=== PATIENT | male | born 1945 | race Caucasian/White ===

== ENCOUNTER 2016-12-22 19:57 | Inpatient (IN) | payer MEDICARE, BC ==
[~2016-12-22] VITALS: Ht 175.3 cm; Wt 77.1 kg
[~2016-12-22 19:57] MED LIST: ASPI325T4 PO; METO25TA4 PO; SIMV40TA3 PO; WARF4TAB7 PO; WARF5TAB7 PO; [UNRECOGNIZED DRUG - OTHER] PO
--- NOTE | 2016-12-22 20:03 | ED.ADGEN ---
Past History Past Medical History: CVA, High Cholesterol, Hypertension, Other Past Surgical History: Other Alcohol Use: Occasionally Drug Use: None Adult General Chief Complaint Chief Complaint " I guess I woke up goofy more than my usual goofy... " " I did have some memory problems ...I noticed when the residential real estate assistant's... started asking me question...I was having some memory problems... but I am much more clear now... "..." I cant take blood thinner.. because I bleed too bad... but I do take my daily Aspirin.." HPI HPI Patient is a 71 year old male who presents with above hx and complaints of mental status change. Pt. states he worked today.. and came home as usual and ate dinner. He then took his normal nap after dinner and about 40 min. later when he woke up he was confused. Pt. is now reportedly back to baseline per pt. and family. Pt. denies trauma, travel or ill contacts. Pt. follows with Dr. Esparza and EFFIE for his cardiac surgery. Patient states he does not take anticoagulants because of severe GI bleeds. Patient does take a daily aspirin. Patient denies any prior history of strokes or neural disorders. Review of Systems Review of Systems Constitutional: Denies fever or chills [] Eyes: Denies change in visual acuity, redness, or eye pain [] HENT: Denies nasal congestion or sore throat [] Respiratory: Denies cough or shortness of breath [] Cardiovascular: No additional information not addressed in HPI [] GI: Denies abdominal pain, nausea, vomiting, bloody stools or diarrhea [] : Denies dysuria or hematuria [] Musculoskeletal: Denies back pain or joint pain [] Integument: Denies rash or skin lesions [] Neurologic: Denies headache, focal weakness or sensory changes [. Hx. and] complaints of an episode of confusion after a 40 min. nap. Endocrine: Denies polyuria or polydipsia [] Family History Family History Noncontributory Current Medications Current Medications Current Medications Medications (Trade) Dose Ordered Sig/Tenzin Start Time Stop Time Status Last Admin Dose Admin Lactated Ringer's (Iv Lactated Ringers) 1,000 ml @ 100 mls/hr Q10H 12/22/16 20:15 12/23/16 02:47 DC See nursing for home meds Allergies Allergies Allergies Coded Allergies Type Severity Reaction Last Updated Verified No Known Drug Allergies 08/15/16 No Physical Exam Physical Exam Constitutional: , no acute distress, non-toxic appearance. [] HENT: Normocephalic, atraumatic, bilateral external ears normal, oropharynx moist, no oral exudates, nose normal. [] Eyes: PERRLA, EOMI, conjunctiva normal, no discharge. [] Neck: Normal range of motion, no tenderness, supple, no stridor. No bruits appreciated. Cardiovascular: Bradycardic Heart rate regular rhythm, PMI to Lt. Lungs & Thorax: Bilateral breath sounds equal at apexes with few scattered wheezes on auscultation [] Mid line surgical scar. Abdomen: Bowel sounds normal, soft, no tenderness, no masses, no pulsatile masses. [] Patient refused rectal at this time. Skin: Warm, dry, no erythema, no rash. Poor turgor Back: No tenderness, no CVA tenderness. [] Extremities: No tenderness, no cyanosis, no clubbing, ROM intact, no edema. [] Nor cording appreciated. Neurologic: Alert and oriented X 3, normal motor function, normal sensory function, no focal deficits noted. DTR +2 patella and brachial. Electrician Office equal. Daughter at bedside states he is acting normally now. Psychologic: Affect normal, judgement normal, mood normal. [] Current Patient Data Vital Signs Vital Signs Date Time Temp Pulse Resp B/P Pulse Ox O2 Delivery O2 Flow Rate FiO2 12/22/16 20:05 98.3 75 18 97 Room Air Lab Results Laboratory Tests Test 12/22/16 20:35 White Blood Count 4.1x10^3/uL (4.0-11.0) Red Blood Count 4.71x10^6/uL (4.30-5.70) Hemoglobin 13.5g/dL (13.0-17.5) Hematocrit 41.4% (39.0-53.0) Mean Corpuscular Volume 88fL (79-100) Mean Corpuscular Hemoglobin 29pg (25-35) Mean Corpuscular Hemoglobin Concent 33g/dL (31-37) Red Cell Distribution Width 15.7% (11.5-14.5) H Platelet Count 186x10^3/uL (140-400) Neutrophils (%) (Auto) 44% (31-73) Lymphocytes (%) (Auto) 37% (24-48) Monocytes (%) (Auto) 14% (0-9) H Eosinophils (%) (Auto) 4% (0-3) H Basophils (%) (Auto) 1% (0-3) Neutrophils # (Auto) 1.8x10^3uL (1.8-7.7) Lymphocytes # (Auto) 1.5x10^3/uL (1.0-4.8) Monocytes # (Auto) 0.6x10^3/uL (0.0-1.1) Eosinophils # (Auto) 0.2x10^3/uL (0.0-0.7) Basophils # (Auto) 0.0x10^3/uL (0.0-0.2) Erythrocyte Sedimentation Rate 19 (0-15) H Prothrombin Time 9.3SEC (9.4-11.4) L Prothrombin Time INR 0.9 (0.9-1.1) PTT 24SEC (23-33) D-Dimer (Debi) 0.92mg/L (0.00-0.50) H Sodium Level 140mmol/L (136-145) Potassium Level 4.0mmol/L (3.5-5.1) Chloride Level 104mmol/L (98-107) Carbon Dioxide Level 29mmol/L (21-32) Anion Gap 7 (6-14) Blood Urea Nitrogen 19mg/dL (8-26) Creatinine 1.8mg/dL (0.7-1.3) H Estimated GFR (Cockcroft-Gault) 37.4 Glucose Level 86mg/dL (70-99) Calcium Level 8.7mg/dL (8.5-10.1) Magnesium Level 2.1mg/dL (1.8-2.4) Total Bilirubin 0.3mg/dL (0.2-1.0) Direct Bilirubin 0.1mg/dL (0.0-0.2) Aspartate Amino Transferase (AST) 25U/L (15-37) Alanine Aminotransferase (ALT) 18U/L (16-63) Alkaline Phosphatase 89U/L (46-116) Creatine Kinase 94U/L (39-308) Creatine Kinase MB (Mass) 1.2ng/mL (0.0-3.6) Creatine Kinase MB Relative Index 1.3% (0-4) Troponin I Quantitative < 0.017ng/mL (0-0.055) C-Reactive Protein 0.5mg/L (0-3.3) KH-Cjt-E-Type Natriuretic Peptide 419pg/mL (0-124) H Total Protein 7.9g/dL (6.4-8.2) Albumin 4.0g/dL (3.4-5.0) Lipase 305U/L (73-393) EKG EKG My interpretation EKG shows a sinus rhythm at 56 bpm. There is some anterior septal changes but no findings acute STEMI at this time. [] Radiology/Procedures Radiology/Procedures My interpretation chest x-ray shows midline sternal wires. No large infiltrate. Aortic valve. I interpretation of CT shows no shift, mass, edema, or bleed. Does have findings of an older lacunar infarct on Lt caudate area. No acute cervical findings. Degenerative joint changes. See formal report when available. [] Course & Med Decision Making Course & Med Decision Making Pertinent Labs and Imaging studies reviewed. (See chart for details) TPA not indicated at this time. Will not heparinize, due to past hx of severe GI bleeds. Discussed presentation, testing and tx plan with Dr. Lyn- will admit for further tx. and evaluation. Additional note: Pt. was in process of starting a carotid doppler and developed Tonic /Clonic Seizure.- Rapid response was called. No documented loss of pulse. On my arrival patient was postictal and attempting to get out of bed and fighting the nurses. Patient seemed to respond to his name, but would not follow instructions. At times patient appeared to have additional seizure activity staring to the left. After another episode on possible seizure activity, patient lost gag reflex and was snoring. Elected to protect patient' s airway while awaiting transfer for possible MRI at [facility]. Patient intubated with a 7.5 to 23 cm at gum with curve blade. Breath sounds equal, with fog of tube. Sats > 98%. No breath sounds over stomach. Pt. received Ativan and 1000 mg Keppra IV See Rapid response flow sheet for details. OG place by auscultation with return of gastric fluids. Chest x-ray post placement ET tube shows adequate placement of OG tube. ET at just above jesus. See rapid response. Critical care 60 min. [] Final Impression Final Impression 1. Mental status change[] 2. TIA vs CVA 3. Old CVA per CT (Lacunar Lt. caudate) 4. Bradycardia 5. Elevation d-dimer 6. Elevated creatinine 7..Tonic clonic Seizure- See rapid response Problems: Dragon Disclaimer Dragon Disclaimer This electronic medical record was generated, in whole or in part, using a voice recognition dictation system. MARC JANSEN MD Dec 22, 2016 20:03
[2016-12-22] MEDS ORDERED: IV RINGERS SOLUTION,LACTATED 1,000 ML IV SCH (20:15)
--- NOTE | 2016-12-22 20:24 | RAD ---
PROCEDURE CT head and C-spine without contrast HISTORY Altered mental status CT HEAD WITHOUT CONTRAST: Noncontrast axial cross sectional CT scanning of the head was performed. FINDINGS There is moderate diffuse atrophy. There is an old lacunar infarct in the left caudate nucleus. No acute intracranial hemorrhage or midline shift or mass-effect or hydrocephalus or extra-axial fluid collection is seen. No focal hypodense area is seen to indicate an acute infarct or edema radiographically. No skull fracture or pneumocephalus is seen. No opacification of the mastoid sinuses or the paranasal sinuses is seen. The maxillary sinuses are not completely seen in this study. IMPRESSION Old infarct on the left. No acute intracranial abnormality is seen. CT C-spine without contrast: Axial helical images of the cervical spine was obtained without contrast and axial coronal sagittal reconstruction was performed. The vertebral bodies are aligned there is no loss vertebral body stature there is no prevertebral soft tissue swelling. Facet arthropathy results in moderate to marked narrowing of multiple neuroforamen. No acute findings. These results were called to the emergency department and verified by read back at the time of dictation. PQRS Statement: One or more of the following individualized dose reduction techniques were utilized for this study: 1. Automated exposure control. 2. Adjustment of the mA and/or kV according to patient size. 3. Use of iterative reconstruction technique. Electronically signed by: Juan David Adams MD (Dec 22, 2016 20:22:59)
--- NOTE | 2016-12-22 20:46 | EKG ---
[address] [address] Test Date: 2016-12-22 Test Time: 20:44:46 Pat Name: KHAI PASCUAL Department: Room: Gender: M Metal Caster: CHRIS : 1945 Requested By: MARC JANSEN Order Number: [id number] Reading MD: Measurements Intervals [place] Rate: 56 P: 58 ND: 206 QRS: 11 QRSD: 88 T: 59 QT: 438 QTc: 425 Interpretive Statements SINUS RHYTHM QRS(T) CONTOUR ABNORMALITY CONSIDER ANTEROSEPTAL MYOCARDIAL DAMAGE POSSIBLY ABNORMAL ECG RI6.01 Unconfirmed report Compared to ECG 08/15/2016 16:24:24 No significant changes
[2016-12-22 21:02] LABS: BASO % 1 % (0-3); EOS # 0.2 x10^3/uL (0.0-0.7); EOS % 4 % (0-3); HEMATOCRIT 41.4 % (39.0-53.0); HEMOGLOBIN 13.5 g/dL (13.0-17.5); LYMPH # 1.5 x10^3/uL (1.0-4.8); LYMPH % 37 % (24-48); MEAN CORPUSCULAR HEMOGLOBIN 29 pg (25-35); MEAN CORPUSCULAR HGB CONC 33 g/dL (31-37); MEAN CORPUSCULAR VOLUME 88 fL (79-100); MONO # 0.6 x10^3/uL (0.0-1.1); MONO % 14 % (0-9); NEUT # 1.8 x10^3uL (1.8-7.7); NEUT % 44 % (31-73); PLATELET COUNT 186 x10^3/uL (140-400); RED BLOOD COUNT 4.71 x10^6/uL (4.30-5.70); RED CELL DISTRIBUTION WIDTH 15.7 % (11.5-14.5); WHITE BLOOD COUNT 4.1 x10^3/uL (4.0-11.0)
[2016-12-22 21:31] LABS: C REACTIVE PROTEIN 0.5 mg/L (0-3.3); CALCIUM 8.7 mg/dL (8.5-10.1); CREATININE 1.8 mg/dL (0.7-1.3); DIRECT BILIRUBIN 0.1 mg/dL (0.0-0.2); GFR 37.4; MAGNESIUM 2.1 mg/dL (1.8-2.4); TOTAL BILIRUBIN 0.3 mg/dL (0.2-1.0); TOTAL PROTEIN 7.9 g/dL (6.4-8.2)
[2016-12-22 22:08] LABS: SEDIMENTATION RATE 19 (0-15)
[2016-12-22] MEDS ORDERED: ONDANSETRON PF 4 MG/2 ML VIAL. IV PRN (23:00)
[2016-12-22 23:20] VITALS: BP 156/79
[2016-12-23] VITALS (8 sets, daily range): BP systolic 126–190; BP diastolic 65–102
[2016-12-23] MEDS ORDERED: LORAZEPAM 2 MG/ML VIAL ONE (00:30)
[2016-12-23] MEDS ORDERED: LEVETIRACETAM 500 MG/5 ML VIAL IV ONE (00:41)
[2016-12-23] MEDS ORDERED: MIDAZOLAM HCL 5 MG/5 ML VIAL ONE ×2 (01:00→02:09)
[2016-12-23] MEDS ORDERED: SUCCINYLCHOLINE 200 MG/10 ML VIAL. ONE (01:00)
[2016-12-23] MEDS ORDERED: ETOMIDATE 40 MG/20 ML VIAL. IV ONE (01:00)
[2016-12-23] MEDS ORDERED: IV NORMAL SALINE 500 ML BAG ONE (01:00)
[2016-12-23] MEDS ORDERED: PROPOFOL 10,000 MCG/ML (20ML) VIAL IV ONE (01:00)
--- NOTE | 2016-12-23 01:12 | RAD ---
Chest PA and lateral Indication: Shortness of air. Time of exam 8:17 p.m. The heart size is normal. 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 The lungs are clear. No infiltrate, effusion or pneumothorax is detected. Impression: No acute abnormality is detected. Electronically signed by: Dieudonne Vaughan MD (Dec 23, 2016 01:11:02)
--- NOTE | 2016-12-23 01:14 | RAD ---
Portable chest, one view Indication: Intubation. Time of exam 12:43 a.m. Comparison is made with prior chest 1 day earlier. The patient has been intubated. The ET tube appears to be directed towards the right mainstem bronchus and should be pulled back approximately 1 centimeter. NG tube is coiled in the stomach. The lungs appear to be clear apart from minimal patchy bibasilar infiltrates. No effusion is seen. Impression: Endotracheal tube placement which should be pulled back approximately 1 centimeter. Electronically signed by: Dieudonne Vaughan MD (Dec 23, 2016 01:12:02)
[2016-12-23] MEDS ORDERED: LEVETIRACETAM 1,000 MG in IV NORMAL SALINE 100ML 100 ML IV ONE (01:15)
[2016-12-23] MEDS ORDERED: PROPOFOL 100 ML IV ONE ×2 (01:36→02:12)
[2016-12-23 01:57] LABS: BARBITURATES NEG (NEG); BENZODIAZEPINES NEG (NEG); CANNABINOIDS NEG (NEG); COCAINE NEG (NEG); METHADONE NEG (NEG); OPIATES NEG (NEG); PHENCYCLIDINE NEG (NEG)
[2016-12-23 01:58] LABS: AMPHETAMINE/METHAMPHETAMINE NEG (NEG)
[2016-12-23 02:00] LABS: BILIRUBIN,URINE NEG (NEG); CLARITY,URINE CLEAR; COLOR,URINE YELLOW; GLUCOSE,URINE NEG (NEG); NITRITE,URINE NEG (NEG); UROBILINOGEN,URINE 0.2 mg/dL (0.2 mg/dL)
[2016-12-23 02:01] LABS: BACTERIA,URINE FEW /HPF (0-FEW); RBC,URINE RARE /HPF (0-2); WBC,URINE RARE /HPF (0-4)
--- NOTE | 2016-12-23 02:09 | ACF ---
Admission Criteria Forms MENTAL STATUS CHANGE Clinical Indications for Inpatient Care (Place 'X' for any and all applicable criteria): Ongoing inpatient care may be needed for ANY ONE of the following(1)(2)(3)(5)(6) : [X]I. Suspected serious etiology (eg, medical disorder, DREDGE RUNNER event) of mental status change [ ]II. Danger to self or others not manageable at lower level of care [ ]III. Grave disability (eg, inability to perform self care necessary at lower level of care) [ ]IV. Agitation or inappropriate behavior interfering with care for primary condition (eg, attempting to discontinue lines or drains prematurely, unable to cooperate with respiratory care) [ ]V. Delirium [A] [D][E] as described by ANY ONE of the following(26): [ ]a) Delirium due to alcohol or sedative [F] withdrawal [ ]b) Delirium of uncertain etiology that has not responded to appropriate empiric treatment [ ]c) Delirium that prevents performance of a life-sustaining function (eg, feeding or hydrating oneself) [ ]. General contraindications and/or Inappropriate clinical situations for Observational Care in patients with Mental Status Change, when ANY ONE of the following is required: [ ]a) Prediction of prolongation of LOS based on ANY ONE of the following may be considered as a contraindication for observational care 2, 3, 4, 5, 6, 7, 8, 9, 10, 11 [ ]i) Age > 65 yrs. [ ]ii) Patient arriving by ambulance [ ]iii) Patient with high acuity [ ]iv) Patient requiring vital sign monitoring [ ]v) Patient on IV medication [ ]b) Systolic blood pressures 180mmHg 3,12 [ ]c) Patient with altered mental status including delirium and other alteration of consciousness, (3) [ ]d) Patient whose discharge disposition will be to a fpc home or rehabilitation home should not be managed in Emergency Department Observation Unit. CMS rule requires 3 days hospital stay before such placement.3,13 [ ]e) Patient with failure to thrive due to broad array of etiologies 3,16,17 [ ]f) Inability to ambulate 3,14 Extended stay beyond goal length of stay for the primary condition may be needed until ALL of the following are present(3)(5): [ ]a) Underlying medical etiology of mental status change is absent, or has been established and adequately treated [ ]b) Danger to self or others is absent or manageable at lower level of care. [ ]c) Behavior crisis management, including physical or chemical restraints, is not required or available at lower level of car [ ]d) Substance or alcohol withdrawal is absent or manageable at lower level of care. [ ]e) Behavioral symptoms (eg, agitation, somnolence, inappropriate behavior) are absent, or are manageable at lower level of care. The original [facility] content created by [facility] has been revised. The portions of the content which have been revised are identified through the use of italic text or in bold, and [facility] has neither reviewed nor approved the modified material. All other unmodified content is copyright [facility]. Please see references footnoted in the original [facility] edition 2016 Admission Criteria Met?: Yes VICTORINA GARZA Dec 23, 2016 02:08
[2016-12-23] MEDS ORDERED: PROPOFOL 100 ML IV PRN (02:15)
[2016-12-23] MEDS ORDERED: MIDAZOLAM HCL 5 MG/5 ML VIAL IV ONE (02:15)
[2016-12-23] MEDS ORDERED: ASPIRIN 81 MG TAB.CHEW PO SCH (09:00)
--- NOTE | 2016-12-26 18:58 | SSS ---
ADMIT DATE: 12/23/2016 HISTORY OF PRESENT ILLNESS: The patient is a 71-year-old male patient who came to the Emergency Room with altered mental status. He stated that he worked it whole day and came home as usual and ate dinner. He did not took his normal nap. After dinner in about 40 minutes later when he woke up, he was very confused and reportedly back to baseline. The patient's family denied any trauma, travel, or ill contact and the patient stated that he does not take any anticoagulants because of severe GI bleed. The patient does take daily aspirin and basically was admitted to the [address] [place] [address] for altered mental status. He did have a CT scan of the head and neck that showed that he has an old infarct in the left no acute intracranial abnormalities seen. CT spine showed that the vertebral bodies are aligned there and there is no loss of vertebral body stature. There is no prevertebral soft tissue swelling, facet arthropathy resulting in [id number] narrowing multilevel neural foramina, no acute finding. The patient was admitted and after a short period of time, the patient had had a grand mal seizure and he apparently was intubated. As the patient has another possible seizure and loss gag reflex and was snoring, the ER physician elected to protect the patient's airway while awaiting transfer for possible MRI at [facility]. He was intubated with the deposition with endotracheal tube was confirmed by breath sounds and fog in the tube. He was satting on 98%, no breath sounds over the stomach. He did receive an Ativan as well as 1000 mg of Keppra IV and was transferred to [facility] ICU to continue mechanical ventilation and to have an MRI and consult the Neurology team. PAST MEDICAL HISTORY: Significant for bicuspid aortic valve, status post aortic valve replacement with tissue valve. He has also chronic kidney disease with atrophic right kidney and GI bleed. He was put on Coumadin. He is also known to have hypertension, hyperlipidemia, and previous history of CVA. PAST SURGICAL HISTORY: Significant for aortic valve replacement. FAMILY HISTORY: Unremarkable. SOCIAL HISTORY: He is , lives with his . ALLERGIES: He has no known drug allergies. MEDICATIONS: The patient was on following medications: He is on aspirin 325 mg once a day, metoprolol tartrate half a tablet twice a day, Simvastatin 40 mg at bedtime. He was on bioflavonoids 1 tablet once a day. He is no longer on Coumadin. PHYSICAL EXAMINATION: GENERAL: On examining him, he looked well and was clearly in no apparent respiratory distress. He has orotracheal tube in place and was on mechanical ventilation. NECK: Supple. HEART: Showed normal first and second heart sounds with no gallop, rub, or murmur. CHEST: Clear to auscultation. No crepitation or rhonchi. ABDOMEN: Mild distended, soft, nontender. NEUROLOGIC: He was unresponsive was given Ativan and also fentanyl for rapid sequence intubation. LABORATORY DATA: His lab work showed a white cell count of 4100, hemoglobin 13.5, hematocrit 41, MCV 88, and platelet count of 186,000. His chemistry showed a serum sodium 140, potassium 4, chloride 104, bicarbonate 29, anion gap of 7, BUN 19, creatinine was 1.8, estimated GFR was 37 mL per minute. His glucose was 86, calcium was 8.7, and magnesium 2.1. Total bilirubin, AST, ALT, alkaline phosphatase were normal. His total protein was 7.9, albumin was 4.9. Lipase ____ and TSH was 1.902. His prothrombin time was 9.3, INR of 0.9, aPTT was 24, and D-dimer was 0.92. His urinalysis was essentially unremarkable and toxic screen was essentially negative. He did have a chest x-ray which again showed that the patient has been intubated and endotracheal tube what appears to be directed towards the right main stem bronchus and should be pulled back approximately 1 cm. NG tube is coiled in the stomach. The lungs appeared to be clear apart from minimal bibasilar infiltrate, no effusion is seen. ASSESSMENT AND PLAN: The patient was transferred to [facility] ICU with: 1. New onset seizure with altered mental status and acute respiratory failure requiring intubation and mechanical ventilation. 2. Hypertension. 3. Hyperlipidemia. 4. Bicuspid aortic valve, status post aortic valve replacement. 5. Chronic kidney disease with atrophic right kidney. VERNA PAZ MD DR: YANG/neyda JOB#: [id number] / [id number]
== END 2016-12-23 02:25 | disposition short-term general hospital (02) | DRG 100 ==
LOC: ER 19:57 → 1 SOUTH 22:51
PROVIDERS: ADMIT Internal Medicine; ATTEND Internal Medicine
PROC: 0BH17EZ Insertion of Endotracheal Airway into Trachea, Via Natural or Artificial Opening (ICD-10-PCS; principal; 2016-12-22)
DX: G40.409 Other generalized epilepsy and epileptic syndromes, not intractable, without status epilepticus (principal); J96.00 Acute respiratory failure, unspecified whether with hypoxia or hypercapnia; R41.82 Altered mental status, unspecified; E78.00 Pure hypercholesterolemia, unspecified; R00.1 Bradycardia, unspecified; I10 Essential (primary) hypertension; Z86.73 Personal history of transient ischemic attack (TIA), and cerebral infarction without residual deficits; I12.9 Hypertensive chronic kidney disease with stage 1 through stage 4 chronic kidney disease, or unspecified chronic kidney disease; E78.5 Hyperlipidemia, unspecified; N18.9 Chronic kidney disease, unspecified
CPT/HCPCS: 31500; 36415; 70450; 71010; 71020; 72125; 80048; 80076; 81001; 82553; 82947; 83690; 83735; 83880; 84443; 84484; 85027; 85379; 85610; 85651; 85730; 86140; 93005; 96365; G0481; J0330; J1953; J2060; J2250; J2704; J7040; 99291-25

== ENCOUNTER 2017-07-27 06:53 | Emergency (ER) | payer MEDICARE, BC ==
[~2017-07-27] VITALS: Ht 175.3 cm; Wt 73.9 kg
[~2017-07-27 06:53] MED LIST changes: -ASPI325T4 PO; +ASPI325T8 PO
[2017-07-27 07:00] VITALS: BP 164/89
[2017-07-27] MEDS ORDERED: LIDOCAINE 2% VISCOUS 15 ML SOLUTION. ONE (07:21)
[2017-07-27] MEDS ORDERED: LIDOCAINE 2% 20 ML VIAL. IJ ONE (07:45)
[2017-07-27] MEDS ORDERED: AMOXICILLIN/K CLAV 875/125MG TABLET. PO ONE (08:45)
[2017-07-27] MEDS ORDERED: AMOX1TAB61 PO (08:56)
--- NOTE | 2017-07-27 08:57 | PHYS DOC ---
Past History Past Medical History: Heart Disease, Hypertension, Seizure Past Surgical History: Other Alcohol Use: None Drug Use: None Adult General Chief Complaint Chief Complaint: FINGER INJURY HPI HPI Patient is a 71 year old M who presents with swelling of his L thumb. He states that about 3 weeks ago he cut his thumb with a hand saw. He cleaned and covered the wound. He feels that the wound healed well. Starting last night he noted constant dull and increasing pain that was associated with swelling. He does not know how long the swelling has been present. He feels the pain is worse with movement or palpation of his thumb Review of Systems Review of Systems Constitutional: Denies fever or chills [] Eyes: Denies change in visual acuity, redness, or eye pain [] HENT: Denies nasal congestion or sore throat [] Respiratory: Denies cough or shortness of breath [] Cardiovascular: No additional information not addressed in HPI [] GI: Denies abdominal pain, nausea, vomiting, bloody stools or diarrhea [] : Denies dysuria or hematuria [] Musculoskeletal: Denies back pain or joint pain [] Integument: Negative except HPI Neurologic: Denies headache, focal weakness or sensory changes [] Endocrine: Denies polyuria or polydipsia [] Family History Family History Non contributory Current Medications Current Medications Current Medications Medications (Trade) Dose Ordered Sig/Tenzin Start Time Stop Time Status Last Admin Dose Admin Amoxicillin/ Clavulanate Potassium (Augmentin 875/ 125mg) 1 tab 1X ONCE 07/27/17 08:15 07/27/17 08:16 UNV Lidocaine HCl 15 ml STK-MED ONCE 07/27/17 07:21 07/27/17 07:22 DC Allergies Allergies Allergies Coded Allergies Type Severity Reaction Last Updated Verified No Known Drug Allergies 08/15/16 No Physical Exam Physical Exam Constitutional: Well developed, well nourished, no acute distress, non-toxic appearance. [] HENT: Normocephalic, atraumatic, Eyes: PERRLA, EOMI, conjunctiva normal, no discharge. [] Neck: Normal range of motion, no tenderness, supple, no stridor. [] Cardiovascular:Heart rate regular rhythm, Lungs & Thorax: Bilateral breath sounds clear to auscultation [] Skin: Warm, dry, no erythema, no rash. Moderate swelling over the dorsal L thumb over the DIP. At the center of the swelling a well healed laceration was noted. Mild dull erythema noted not extending past the swelling. No warmth noted. Neurologic: Alert and oriented X 3, normal motor function, normal sensory function, no focal deficits noted. [] Psychologic: Affect normal, judgement normal, mood normal. [] Current Patient Data Vital Signs Vital Signs Date Time Temp Pulse Resp B/P (MAP) Pulse Ox O2 Delivery O2 Flow Rate FiO2 07/27/17 07:00 97.7 65 20 99 Room Air EKG EKG [] Radiology/Procedures Radiology/Procedures Johnny's daughter was present during his evaluation. He was advised that his signs and symptoms were most consistent with a Seroma. Seroma's do not require further treatment and are at very little risk for developing infection unless drainage is attempted. Drainage may be attempted if the pain is severe. He was advised that options included watchful waiting with close follow up, transfer to be assessed by a specialist such as a hand surgeon, or drainage in the ED by Dr. Guillermo. He did consent to drainage in the ED. After consent was obtained, Johnny's wound was cleaned using Chlorhexidine. Lidocaine 2% 1cc was placed over the distal edge of the swelling. After the wound was anesthetized, an 18g needle was used to decompress the wound. Minimal serosanguineous fluid was drained with minimal improvement in symptoms. Again options were reviewed with the additional recommendation that Antibiotics should be started to prevent infection. US was obtained as the pain was only mildly improved and less fluid than expected removed initially. US did not reveal any additional fluid collection. He was started on Augmentin in the ED and he was given a script for Augmentin Course & Med Decision Making Course & Med Decision Making Pertinent Labs and Imaging studies reviewed. (See chart for details) [] Dragon Disclaimer Dragon Disclaimer This chart was dictated in whole or in part using Voice Recognition software in a busy, high-work load, and often noisy Emergency Department environment. It may contain unintended and wholly unrecognized errors or omissions. Departure Departure: Impression: Primary Impression: Seroma Disposition: HOME, SELF-CARE Condition: STABLE Referrals: FLETCHER PATINO (PCP) Additional Instructions: Johnny was seen in the ED with thumb pain and swelling. No emergency medical condition was found on history or physical exam. His symptoms are most consistent with a Seroma. His wound was cleaned and drained with mild improvement in symptoms. He was started on an antibiotic to prevent infection. He was advised to follow up with his primary care doctor in the next 3-5days for further management. Scripts Amoxicillin/Potassium Clav (AUGMENTIN 875-125 TABLET) 1 Each Tablet 1 TAB PO BID for 3 Days, #6 TAB Prov: ART GUILLERMO MD 07/27/17 ART GUILLERMO MD Jul 27, 2017 08:57
--- NOTE | 2017-07-27 09:06 | RAD ---
Indication: Left thumb swelling. Technique: Targeted ultrasound of the area of concern was performed. Findings: There is a hypoechoic area with peripheral color flow measuring about a centimeter in size at the area of concern. There is gas within this area likely related to recent needle aspiration. This could represent an area of phlegmonous change or collapsed abscess cavity. There is diffuse soft tissue swelling with hyperemia throughout the remainder of the thumb as well. Impression: 1. Hypoechoic structure in the thumb at the area of concern could represent phlegmonous change or residual abscess cavity post aspiration. 2. Diffuse soft tissue swelling with hyperemia compatible with cellulitis.
== END 2017-07-27 09:24 | disposition home or self-care (01) ==
LOC: ER 06:53
DX: S60.012A Contusion of left thumb without damage to nail, initial encounter (principal); I11.9 Hypertensive heart disease without heart failure; W27.0XXA Contact with workbench tool, initial encounter; Y93.89 Activity, other specified; Y99.8 Other external cause status; Y92.89 Other specified places as the place of occurrence of the external cause
CPT/HCPCS: 10160; 76881; 99284-25; J2001

== ENCOUNTER → 2017-10-12 | Outpatient (CLI) | payer MEDICARE, BC ==
[~2017-10-12] MED LIST changes: +AMOX1TAB61 PO
[2017-10-12 12:10] LABS: ALBUMIN/GLOBULIN RATIO 1.1 (1.0-1.7); CALCIUM 9.2 mg/dL (8.5-10.1); CREATININE 1.6 mg/dL (0.7-1.3); GFR 42.8; POTASSIUM 4.4 mmol/L (3.5-5.1); TOTAL BILIRUBIN 0.4 mg/dL (0.2-1.0); TOTAL PROTEIN 7.6 g/dL (6.4-8.2)
== END | disposition home or self-care (01) ==
LOC: LAB 11:17
PROVIDERS: ATTEND Internal Medicine Cardiovascular Disease
DX: I71.4 Abdominal aortic aneurysm, without rupture (principal); Z87.891 Personal history of nicotine dependence
CPT/HCPCS: 36415; 80053; 80061

== ENCOUNTER → 2019-04-19 | Outpatient (CLI) | payer MEDICARE, BC ==
[~2019-04-19] MED LIST changes: +WARF-31 PO; +WARF4TAB64 PO; -WARF4TAB7 PO; -WARF5TAB7 PO
--- NOTE | 2019-04-19 15:39 | RAD ---
CT scan of the chest without contrast 04/19/2019 CLINICAL HISTORY: Possible mucous seen within the trachea on a recent CT scan. A 2 month follow-up CT scan of the chest was recommended. TECHNIQUE: Unenhanced, contiguous, 3 mm axial sections were obtained through the chest and upper abdomen. One or more of the following individualized dose reduction techniques were utilized for this study: 1. Automated exposure control. 2. Adjustment of the mA and/or kV according to patient size. 3. Use of iterative reconstruction technique. FINDINGS: Comparison is made to the patient's CTA of the chest dated 01/31/2019. A left-sided pacemaker is seen. Leads extend to the right atrium and right ventricle of the heart. The patient is post aortic valve replacement. Atherosclerotic calcification of the thoracic aorta and its branches is noted. The thoracic aorta is mildly tortuous but tapers normally. Fairly extensive coronary artery calcifications are seen. The heart is normal in size. A partially calcified 2 cm subcarinal lymph node is seen. The mucous within the trachea seen on the previous examination has resolved. A 7 mm oval-shaped nodular opacity is seen involving the right lower lobe, unchanged. Minimal dependent subsegmental atelectasis is seen involving both lower lobes. No area of consolidation is seen. No pleural effusion or pneumothorax is noted. Images through the upper abdomen demonstrate marked atrophy of the right kidney. Atherosclerotic calcification of the abdominal aorta and its branches is noted. Degenerative changes are seen involving the thoracic spine. IMPRESSION: The mucous within the trachea seen on the previous examination has resolved. No acute abnormality is seen. Electronically signed by: Francois Dumont MD (04/19/2019 3:36 PM) [place] [id number]
== END | disposition home or self-care (01) ==
LOC: CT 10:55
PROVIDERS: ATTEND Physician Assistant
DX: J98.11 Atelectasis (principal); I70.0 Atherosclerosis of aorta; I25.10 Atherosclerotic heart disease of native coronary artery without angina pectoris; I89.8 Other specified noninfective disorders of lymphatic vessels and lymph nodes; Z95.0 Presence of cardiac pacemaker
CPT/HCPCS: 71250

== ENCOUNTER → 2020-03-20 | Outpatient (CLI) | payer MEDICARE, BC ==
[~2020-03-20] MED LIST changes: +SIMV40TA18 PO; -SIMV40TA3 PO
[2020-03-20 10:16] LABS: BASO % 1 % (0-3); EOS # 0.1 x10^3/uL (0.0-0.7); EOS % 3 % (0-3); HEMATOCRIT 39.7 % (39.0-53.0); HEMOGLOBIN 13.3 g/dL (13.0-17.5); LYMPH # 0.8 x10^3/uL (1.0-4.8); LYMPH % 24 % (24-48); MEAN CORPUSCULAR HEMOGLOBIN 32 pg (25-35); MEAN CORPUSCULAR HGB CONC 34 g/dL (31-37); MEAN CORPUSCULAR VOLUME 95 fL (79-100); MONO # 0.5 x10^3/uL (0.0-1.1); MONO % 14 % (0-9); NEUT % 58 % (31-73); PLATELET COUNT 160 x10^3/uL (140-400); RED BLOOD COUNT 4.16 x10^6/uL (4.30-5.70); RED CELL DISTRIBUTION WIDTH 12.9 % (11.5-14.5); WHITE BLOOD COUNT 3.5 x10^3/uL (4.0-11.0)
--- NOTE | 2020-03-20 10:21 | CARD ---
MR#: [id number] Date of Study: 03/20/2020 Ordering Physician: ROGERS ROBISON, Referring Physician: ROGERS ROBISON, Tech: Sadie Eldridge APPROVED REPORT EXAM: Two-dimensional and M-mode echocardiogram with Doppler and color Doppler. Other Information Quality : AverageHR: 67bpm Rhythm : Pacemaker INDICATION Aortic Valve Replacement Surgery/Intervention Status/Post Aortic Valve Replacement: Bioprosthetic Type: Bovine Date: 2015 Pacemaker: Date: 2017 RISK FACTORS Hypertension Hyperlipidemia 2D DIMENSIONS Left Atrium(2D)3.0 (1.6-4.0cm)IVSd0.9 (0.7-1.1cm) Aortic Root(2D)3.2 (2.0-3.7cm)LVDd4.6 (3.9-5.9cm) LVOT Diameter2.2 (1.8-2.4cm)PWd0.9 (0.7-1.1cm) LVDs2.8 (2.5-4.0cm)FS (%) 39.4 % SV67.5 mlLVEF(%)70.0 (>50%) Aortic Valve AoV Peak Rocael.238.7cm/sAoV VTI58.5cm AO Peak GR.19.3mmHgLVOT Peak Rocael.111.8cm/s LVOT VTI 26.66cmAO Mean GR.11mmHg ULYSSES (VMAX)1.31fw9SFB (VTI)1.75cm2 Mitral Valve MV E Tyqschho14.8cm/sMV E Peak Gr.3mmHg MV DECEL [id number] A Jdamnhtc95.6cm/s MV E Mean Gr.1mmHgE/A Ratio0.5 Tricuspid Valve TR P. Ddenlaff865qk/sRAP IJDIWJZW9wlEb TR Peak Gr.71saIwENYN00wqHg Pulmonary Vein S1 Ibtcbwya81.9cm/sD2 Ickezeso69.1cm/s LEFT VENTRICLE The left ventricle is normal size. There is normal left ventricular wall thickness. The left ventricu lar systolic function is normal. The Ejection Fraction is 55-60%. There is normal LV segmental wall m otion. Transmitral Doppler flow pattern is Grade I-abnormal relaxation pattern. RIGHT VENTRICLE The right ventricle is normal size. There is normal right ventricular wall thickness. The right ventr icular systolic function is normal. There is a pacemaker lead in the right ventricle. ATRIA The left atrium size is normal. The right atrium size is normal. There is a pacemaker lead seen in th e right atrium. The interatrial septum is intact with no evidence for an atrial septal defect or amezcua nt foramen ovale as noted on 2-D or Doppler imaging. AORTIC VALVE Doppler and Color Flow revealed no significant aortic regurgitation. There is no significant aortic v alvular stenosis. Calculated aortic valve area is 2 cm2 with maximum pressure gradient of 23 mmHg and mean pressure gradient of 12 mmHg. There is a bioprosthetic aortic valve prosthesis. The prosthetic aortic valve appears well seated. MITRAL VALVE The mitral valve is normal in structure and function. There is no evidence of mitral valve prolapse. There is no mitral valve stenosis. Doppler and Color Flow revealed no mitral valve regurgitation note d. TRICUSPID VALVE The tricuspid valve is normal in structure and function. Doppler and Color Flow revealed trace tricus pid regurgitation with an estimated PAP of 31 mmHg. There is no tricuspid valve stenosis. PULMONIC VALVE The pulmonic valve is not well visualized. GREAT VESSELS The aortic root is normal in size. The IVC is normal in size and collapses >50% with inspiration. PERICARDIAL EFFUSION There is no evidence of significant pericardial effusion. Critical Notification Critical Value: No <Conclusion> The left ventricular systolic function is normal. The Ejection Fraction is 55-60%. There is normal LV segmental wall motion. Transmitral Doppler flow pattern is Grade I-abnormal relaxation pattern. There is a pacemaker lead in the right atrium and right ventricle. Bioprosthetic aortic valve appears well seated and functioning well with MG 12 mmHg.. Trace tricuspid regurgitation with an estimated PAP of 31 mmHg. There is no evidence of significant pericardial effusion. Signed by : Shiv Capone, Electronically Approved : 03/20/2020 10:20:58
[2020-03-20 10:29] LABS: ALBUMIN 3.8 g/dL (3.4-5.0); CALCIUM 9.3 mg/dL (8.5-10.1); CREATININE 1.8 mg/dL (0.7-1.3); GFR 37.1; POTASSIUM 5.5 mmol/L (3.5-5.1); TOTAL BILIRUBIN 0.4 mg/dL (0.2-1.0); TOTAL PROTEIN 7.5 g/dL (6.4-8.2)
== END | disposition home or self-care (01) ==
LOC: ECHO 09:14
PROVIDERS: ATTEND Internal Medicine Cardiovascular Disease
DX: I10 Essential (primary) hypertension (principal); Z95.4 Presence of other heart-valve replacement
CPT/HCPCS: 36415; 80053; 80061; 85025; 93306

== ENCOUNTER → 2021-01-14 | Outpatient (CLI) | payer MEDICARE, BC ==
--- NOTE | 2021-01-14 17:36 | CARD ---
MR#: [id number] Date of Study: 01/14/2021 Ordering Physician: ROGERS ROBISON, Referring Physician: ROGERS ROBISON, Tech: Alesia Jazmyn [facility] APPROVED REPORT EXAM: Two-dimensional and M-mode echocardiogram with Doppler and color Doppler. Other Information Quality : Average INDICATION Aortic Valve Disease Aortic valve replacement Surgery/Intervention Status/Post Aortic Valve Replacement: Bioprosthetic Type: bovine Date: 2015 Pacemaker: Date: 2017 RISK FACTORS Hypertension Hyperlipidemia 2D DIMENSIONS RVDd3.7 (2.9-3.5cm)Left Atrium(2D)3.3 (1.6-4.0cm) IVSd1.0 (0.7-1.1cm)Aortic Root(2D)3.7 (2.0-3.7cm) LVDd4.5 (3.9-5.9cm)LVOT Diameter2.4 (1.8-2.4cm) PWd1.1 (0.7-1.1cm)LVDs3.3 (2.5-4.0cm) FS (%) 27.7 %SV50.8 ml LVEF(%)53.8 (>50%) Aortic Valve AoV Peak Rocael.231.7cm/sAoV VTI52.5cm AO Peak GR.21.5mmHgLVOT Peak Rocael.121.9cm/s LVOT VTI 25.79cmAO Mean GR.10mmHg ULYSSES (VMAX)2.41hs3KKN (VTI)2.15cm2 Mitral Valve MV E Yjhxjlok46.5cm/sMV DECEL PTPE862gk MV A Wdxhmnhp82.9cm/sE/A Ratio0.6 Pulmonary Valve PV Peak Gepvxgmo397.6cm/sPV Peak Grad.4mmHg Tricuspid Valve TR P. Txzlivjg549nv/sRAP EEYXVNRX6deKe TR Peak Gr.03rmVcKRHN71olZg Pulmonary Vein S1 Lizkxcpy44.1cm/sD2 Vqlnyehc71.9cm/s LEFT VENTRICLE The left ventricle is normal size. There is normal left ventricular wall thickness. The left ventricu lar systolic function is normal and the ejection fraction is within normal range. The Ejection Fracti on is 50-55%. There is normal LV segmental wall motion. Transmitral Doppler flow pattern is Grade I-a bnormal relaxation pattern. RIGHT VENTRICLE The right ventricle is mildly dilated. There is normal right ventricular wall thickness. Systolic fun ction is mildly reduced. There is a pacemaker lead in the right ventricle. ATRIA The left atrium size is normal. The right atrium is borderline dilated. The interatrial septum bows t oward left atrium. AORTIC VALVE Doppler and Color Flow revealed trace aortic regurgitation. Calculated aortic valve area is 1.6 cm2 w ith maximum pressure gradient of 22 mmHg and mean pressure gradient of 11 mmHg. There is a bioprosthe tic aortic valve prosthesis. The prosthetic aortic valve appears normal. MITRAL VALVE The mitral valve is normal in structure and function. There is no evidence of mitral valve prolapse. There is no mitral valve stenosis. Doppler and Color-flow revealed trace mitral regurgitation. TRICUSPID VALVE The tricuspid valve is normal in structure and function. Doppler and Color Flow revealed trace tricus pid regurgitation with an estimated PAP of 22 mmHg. There is no tricuspid valve stenosis. PULMONIC VALVE The pulmonic valve is not well visualized. Doppler and Color Flow revealed trace to mild pulmonic basilia vular regurgitation. GREAT VESSELS The aortic root is normal in size. The ascending aorta is mildly dilated measuring 4 cm. The IVC is n ormal in size and collapses >50% with inspiration. PERICARDIAL EFFUSION There is no evidence of significant pericardial effusion. Critical Notification Critical Value: No <Conclusion> The left ventricle is normal size. The left ventricular systolic function is normal and the ejection fraction is within normal range. The Ejection Fraction is 50-55%. There is a bioprosthetic aortic valve prosthesis. The prosthetic aortic valve appears normal. Doppler and Color Flow revealed trace aortic regurgitation. Calculated aortic valve area is 1.6 cm2 with maximum pressure gradient of 22 mmHg and mean pressure g radient of 11 mmHg. Doppler and Color-flow revealed trace mitral regurgitation. Doppler and Color Flow revealed trace tricuspid regurgitation with an estimated PAP of 22 mmHg. The ascending aorta is mildly dilated measuring 4 cm. Signed by : Aristeo Askew MD Electronically Approved : 01/14/2021 17:35:45
== END ==
LOC: ECHO 07:27
PROVIDERS: ATTEND Internal Medicine Cardiovascular Disease
DX: I37.1 Nonrheumatic pulmonary valve insufficiency (principal); Z95.2 Presence of prosthetic heart valve
CPT/HCPCS: 93306

== ENCOUNTER → 2021-02-12 | Outpatient (CLI) | payer MEDICARE, BC ==
[2021-02-12 09:55] LABS: BASO % 1 % (0-3); EOS # 0.1 x10^3/uL (0.0-0.7); EOS % 3 % (0-3); HEMATOCRIT 39.4 % (39.0-53.0); HEMOGLOBIN 13.1 g/dL (13.0-17.5); LYMPH % 30 % (24-48); MEAN CORPUSCULAR HEMOGLOBIN 31 pg (25-35); MEAN CORPUSCULAR HGB CONC 33 g/dL (31-37); MEAN CORPUSCULAR VOLUME 94 fL (79-100); MONO # 0.4 x10^3/uL (0.0-1.1); MONO % 12 % (0-9); NEUT # 1.8 x10^3uL (1.8-7.7); NEUT % 54 % (31-73); PLATELET COUNT 147 x10^3/uL (140-400); RED BLOOD COUNT 4.19 x10^6/uL (4.30-5.70); RED CELL DISTRIBUTION WIDTH 13.2 % (11.5-14.5); WHITE BLOOD COUNT 3.3 x10^3/uL (4.0-11.0)
[2021-02-12 10:19] LABS: ALBUMIN 3.7 g/dL (3.4-5.0); CREATININE 1.7 mg/dL (0.7-1.3); GFR 39.5; POTASSIUM 4.7 mmol/L (3.5-5.1); TOTAL BILIRUBIN 0.4 mg/dL (0.2-1.0); TOTAL PROTEIN 7.3 g/dL (6.4-8.2)
--- NOTE | 2021-02-13 10:24 | RAD ---
MR#: [id number] Date of Study: 02/12/2021 Ordering Physician: ROGERS COMER, Referring Physician: ROGERS COMER, Tech: Mile Small Parmjit,MS APPROVED REPORT Patient Location: OUT-PATIENT Laterality:Bilateral Indications Bruit Grayscale images of the bilateral carotid vessels demonstrates trivial atherosclerotic plaque and mil d intimal hyperplasia. Based on spectral waveforms and color Doppler overall 0 to less than 50% sten osis based on velocity criteria. Normal ICA to CCA ratios are noted bilaterally. Mildly elevated di astolic velocities in the distal internal carotid artery but overall no significant obstruction is no [place]. Risk Factors Hypertension: Smoking Doppler Spectral Velocity Analysis Right Left pCCA 84/26 cm/spCCA 82/27 cm/s mCCA 84/26 cm/smCCA 100/34 cm/s dCCA 82/29 cm/sdCCA 98/35 cm/s ECA 83/20 cm/sECA 69/19 cm/s pICA 82/29 cm/spICA 89/36 cm/s Frantz 95/41 cm/smICA 93/35 cm/s dICA 124/47 cm/sdICA 94/41 cm/s Vert. 36/13 cm/sVert. 40/15 cm/s ICA/CCA 1.48ICA/CCA 1.15 Critical Notification Critical Value: No <Conclusion> 1. No significant extracranial carotid occlusive disease bilaterally Signed by : Rogers Comer, Electronically Approved : 02/13/2021 10:24:18
--- NOTE | 2021-02-13 10:27 | RAD ---
MR#: [id number] Date of Study: 02/12/2021 Ordering Physician: ROGERS COMER, Referring Physician: ROGERS COMER, Tech: Mile Small RVT,RDMS APPROVED REPORT Patient Location: OUT-PATIENT Indications AAA Grayscale images of the abdominal aorta demonstrate diffuse plaque with ectasia of the distal abdomin al aorta. Velocities involving the right common iliac are elevated suggestive of 50% stenosis. Norm al aortic velocities noted. The distal abdominal aorta measures approximately 4.1 cm consistent with a small abdominal aortic aneurysm. This appears to be stable in size from previous comparison in 20 12 and measured approximately 3.7 cm in maximum dimension. Risk Factors Hypertension Smoking Duplex Results A/PTransverseLongitudinal Mid Aorta 2.9cm2.9cm Distal Aorta 3.3cm4.1cm Rt. Common Iliac Artery1.5cm1.9cm Lt. Common Iliac Artery 2.0cm1.9cm Doppler VelocityWaveform Proximal Aorta 48.4 cm/sec Aorta Mid. 30.6 cm/sec Distal Aorta 35.0 cm/sec Rt. Common Iliac Lxgklo623.0 cm/sec Lt. Common Iliac Artery 89.0 cm/sec Critical Notification Critical Value: No <Conclusion> 1. Small infrarenal abdominal aortic aneurysm measuring approximately 4.1 cm in greatest dimension. Signed by : Rogers Comer, Electronically Approved : 02/13/2021 10:26:34
== END ==
LOC: US 08:29
PROVIDERS: ATTEND Internal Medicine Cardiovascular Disease
DX: I65.23 Occlusion and stenosis of bilateral carotid arteries (principal); I77.811 Abdominal aortic ectasia; E78.5 Hyperlipidemia, unspecified
CPT/HCPCS: 36415; 76770; 80053; 80061; 85025; 93880